=== PATIENT | female | born 1960 | race Caucasian/White ===

== ENCOUNTER 2018-08-18 11:00 | Outpatient (RCR) | payer OTHER | END 2018-08-22 | LOC: EDBD → OT 11:00 | PROVIDERS: ATTEND Orthopaedic Surgery Hand Surgery | DX: S62.616D Displaced fracture of proximal phalanx of right little finger, subsequent encounter for fracture with routine healing (principal); M24.541 Contracture, right hand; M79.642 Pain in left hand; M25.632 Stiffness of left wrist, not elsewhere classified; R53.1 Weakness; M25.442 Effusion, left hand | CPT/HCPCS: 97139 ==

== ENCOUNTER → 2018-09-21 | Outpatient (RCR) | payer OTHER | LOC: OT 08-24 08:13 | PROVIDERS: ATTEND Orthopaedic Surgery Hand Surgery | DX: S62.616D Displaced fracture of proximal phalanx of right little finger, subsequent encounter for fracture with routine healing (principal); M24.541 Contracture, right hand | CPT/HCPCS: 97139 ==

== ENCOUNTER 2018-10-01 08:00 | Outpatient (RCR) | payer OTHER | END 2018-10-22 | LOC: OT 08:00 | PROVIDERS: ATTEND Orthopaedic Surgery Hand Surgery | DX: S62.616D Displaced fracture of proximal phalanx of right little finger, subsequent encounter for fracture with routine healing (principal); M24.541 Contracture, right hand | CPT/HCPCS: 97139 ==